=== PATIENT | female | born 1970 | race Caucasian/White ===

== ENCOUNTER → 2017-07-15 | Outpatient (CLI) | payer OTHER | LOC: ULTRA 05:41 | DX: N83.202 Unspecified ovarian cyst, left side (principal); N93.0 Postcoital and contact bleeding ==

== ENCOUNTER 2017-09-19 13:21 | Emergency (ER) | payer OTHER ==
[~2017-09-19] VITALS: Ht 162.6 cm; Wt 90.7 kg
[2017-09-19 13:36] LABS: ABSOLUTE NEUTROPHILS 6.8 thou/uL (1.4-8.2); BASOPHILS 0.6 % (0.0-2.0); EOSINOPHILS 1.2 % (0.0-3.0); HEMATOCRIT 40.7 % (37.0-47.0); HEMOGLOBIN 14.2 gm/dL (12.0-15.0); LYMPHOCYTES 38.1 % (24.0-44.0); MCH 33.2 pg (26.0-34.0); MCV 94.9 fL (80.0-100.0); PLATELET COUNT 331 thou/uL (150-400); POLYS 55.1 % (36.0-66.0); RBC 4.29 mil/uL (4.20-5.00); RDW 13.3 % (10.5-14.5); WBC 12.3 thou/uL (4.0-11.0)
[2017-09-19 13:47] LABS: CALCIUM 8.6 mg/dL (8.5-10.1); CREATININE 1.1 mg/dL (0.6-1.0); POTASSIUM 4.5 mmol/L (3.5-5.1)
[2017-09-19 13:53] LABS: ALBUMIN 3.6 g/dL (3.4-5.0); TOTAL BILIRUBIN 0.4 mg/dL (<0.1-1.0); TOTAL PROTEIN 7.7 g/dL (6.4-8.2)
[2017-09-19 15:12] LABS: URINE BILIRUBIN NEGATIVE (Negative); URINE BLOOD NEGATIVE (Negative); URINE CLARITY CLEAR; URINE COLOR YELLOW; URINE GLUCOSE-RANDOM* NEGATIVE (Negative); URINE KETONES NEGATIVE (Negative); URINE NITRITE-REFLEX NEGATIVE (Negative); URINE PROTEIN (DIPSTICK) NEGATIVE (Negative); URINE SPECIFIC GRAVITY 1.025 (1.005-1.035); URINE UROBILINOGEN 0.2 E.U./dl (0.2-1.0)
[2017-09-19 15:15] LABS: URINE LEUKOCYTES-REFLEX TRACE (Negative)
[2017-09-19 15:41] LABS: CASTS None Seen /LPF (None Seen); SQUAMOUS 4-10 Moderate /LPF (0-3); URINE RBC None Seen /HPF (0-2); URINE WBC 0-5 Rare /HPF (0-5)
[2017-09-19] MEDS ORDERED: VIBRAMYCIN 100100 M2 PO (15:41)
[2017-09-19] MEDS ORDERED: IBUPROFEN 600600 M1 PO (15:41)
[2017-09-19 15:42] LABS: BACTERIA None Seen /HPF (None Seen)
[2017-09-19 16:01] VITALS: BP 143/76
== END 2017-09-19 16:02 | disposition home or self-care (01) ==
LOC: ER 13:21
PROVIDERS: Nurse Practitioner Family
DX: N72 Inflammatory disease of cervix uteri (principal); R50.9 Fever, unspecified; Z88.0 Allergy status to penicillin; Z88.5 Allergy status to narcotic agent

== ENCOUNTER 2018-03-18 10:39 | Day surgery (SDC) | payer OTHER ==
[~2018-03-18] VITALS: Ht 162.6 cm; Wt 104.3 kg
--- NOTE | ~2018-03-18 | O ---
[facility] [place] [address] OPERATIVE REPORT Name: CLARA OLIVER [place] #[place] [facility] [place]avon[place] [id number] Admission: 03/18/18 Attend Phys: Parish Barker MD Discharge: 03/18/18 Date of : 66 Report #: [id number] THIS REPORT FOR: //name// CC: Nimo Barker DATE OF SERVICE: 03/18/2018 PREOPERATIVE DIAGNOSIS: Abnormal uterine bleeding. POSTOPERATIVE DIAGNOSES: Abnormal uterine bleeding, endometrial polyp. PROCEDURE: Fractional dilatation and curettage, MyoSure endometrial hysteroscopic polypectomy. SURGEON: Parish Barker MD FACILITIES SUPERVISOR: None. ANESTHESIA: General. ESTIMATED BLOOD LOSS: 10 mL. DRAINS: None. SPECIMEN: 1. Endometrial curettings. 2. Endocervical curettings. COMPLICATIONS: None. FINDINGS: Normal cervix, uterus and adnexa are nonpalpable on pelvic exam. The endocervical canal was normal. Hysteroscopically, there was a 0.5 cm diameter endometrial polyp just proximal to the right tubal ostium. There were no submucosal fibroids. The endometrium was irregularly thickened. DESCRIPTION OF PROCEDURE: The patient was seen in the preoperative holding area where consent was obtained for surgery and postoperative followup arranged. She was then taken to the operating room, administered general anesthesia, prepped and draped in sterile fashion in dorsal lithotomy position. Pelvic exam under anesthesia was carried out. Findings were as dictated as above. A speculum was placed in the vagina. The anterior lip of the cervix was grasped using a single-tooth tenaculum. A diagnostic hysteroscope was inserted under direct hysteroscopic vision with normal saline distending medium. Hysteroscopic findings were as dictated as above. The hysteroscope was removed. The uterus was then sounded to a depth of 7 cm. Hanks dilators were then used to [facility] [address] [place] [address] OPERATIVE REPORT Name: CLARA OLIVER Room #: [place] [facility] [place] Kavon#: [id number] Admission: 03/18/18 Attend Phys: Parish Barker MD Discharge: 03/18/18 Date of : 66 Report #: [id number] progressively dilate the cervix to a #14, large enough to admit the MyoSure hysteroscope, which was then inserted under direct hysteroscopic vision using normal saline distending medium. The MyoSure unit was then used to morcellate and remove the endometrial polyp found just inside the tubal ostia on the patient's right. The MyoSure unit was then used to sample the thickened endometrium from the uterine fundus posteriorly and anteriorly, it was then withdrawn. Hanks dilators were then used progressively to dilate the endocervical canal and endocervical curettage was carried out and this tissue was sent for pathology. A uterine curette was then used to obtain endometrial curettings from the entirety of the endometrial cavity in a clockwise fashion. The specimen was combined with a MyoSure trap specimen and sent for pathology as endometrial. The single-tooth tenaculum was removed. Sponge on a stick was used to produce pressure on the cervix for hemostasis, which was achieved. All instrument and pack counts were correct. The patient was brought out of general anesthesia and taken to recovery room with IV infusing well. She is to follow up as an outpatient in the office in 2 weeks' time and call should she have any increasing pain, persistent bleeding, malaise, nausea or other signs of complications. By: [id number] Parish Barker MD /nt
[~2018-03-18 10:39] MED LIST: ARMOUR THYROID90 M1 PO; BUSPIRONE HCL10 MG PO; CAMRESE LO TAB1 EACH PO; IBUPROFEN 600600 M1 PO; MULTIVITAMINS PO; VIBRAMYCIN 100100 M2 PO
[2018-03-18 11:30] VITALS: BP 147/75
[2018-03-18 14:24] VITALS: BP 147/75
--- NOTE | 2018-03-19 16:08 | PATH ---
[facility] [place] [address] PATHOLOGY RPT PROCEDURE Name: AUNDREA ARREOLA [place] #: [place] [facility] [place] M.R.#: [id number] Admission: 03/18/18 Date of : 66 Discharge: 03/18/18 Report #: [id number] Path Case #: [id number] [facility] Accession Number: [id number] . 01 Material submitted: . PART A: ENDOMETRIAL CURETTINGS AND POLYP PART B: ENDOCERVICAL CURETTINGS . 01 Clinical history: . Abnormal uterine bleeding, endometrial polyp . 02 Diagnosis: A. Uterus, endometrial curettings and polyp: - Few fragments compatible with benign endometrial polyp; negative for atypia or malignancy. - Background endometrium showing tubular inactive appearing endometrial glands associated with pseudodecidualized stroma, changes consistent with exogenous/endogenous progesterone effect. - Fragments of benign endocervical epithelium with no evidence of dysplasia. - Few fragments compatible with endocervical polyps showing mild acute and chronic inflammation. . B. Cervix, endocervical curettings: - Fragments of benign endocervical polyps with mild acute and chronic inflammation. - Background endocervical epithelium showing mild acute and chronic cervicitis. - Negative for dysplasia. . (IUV:cook helper pastry; 03/19/2018) MBR/03/19/2018 . 02 Electronically signed: . Angi Brito MD, Pathologist NPI- [id number] . 01 Gross description: . A. Received in formalin labeled "Aundrea Arreola, endometrial curettings and polyp," is blood-tinged mucoid material containing small fragments of spaulding membranous tissue, measuring 2.5 x 1.9 x 0.2 cm in aggregate dimensions. The specimen is filtered and submitted entirely in cassette A1. . B. Received in formalin labeled "Aundrea Arreola, endocervical curettings," is blood-tinged mucoid material containing small fragments of spaulding membranous tissue, measuring 1.8 x 0.5 x 0.1 cm in aggregate [address] [address] PATHOLOGY RPT PROCEDURE Name: AUNDREA ARREOLA Room #: [place] [facility] [place] M.R.#: [id number] Admission: 03/18/18 Date of : 66 Discharge: 03/18/18 Report #: [id number] Path Case #: [id number] dimensions. The specimen is filtered and submitted entirely in cassette B1. (TSD; 03/18/2018) TOB/TOB . 02 Pathologist provided ICD-10: N84.0, N84.1, N72 . 02 CPT . 963914, [id number] Specimen Comment: A courtesy copy of this report has been sent to Specimen Comment: [phone], . Specimen Comment: Report sent to and Performed at: [address], [place] [id number] MD Rene Calero MD Phone: [phone] Performed at: [address] [id number] MD Angi Brito MD Phone: [phone]
== END 2018-03-18 14:35 | disposition home or self-care (01) ==
LOC: OR 10:39 → TBA 10:40 → OR 11:43
DX: N93.9 Abnormal uterine and vaginal bleeding, unspecified (principal); N84.0 Polyp of corpus uteri; N84.1 Polyp of cervix uteri; N72 Inflammatory disease of cervix uteri; F41.9 Anxiety disorder, unspecified; E03.9 Hypothyroidism, unspecified; Z90.49 Acquired absence of other specified parts of digestive tract; Z98.890 Other specified postprocedural states; Z88.0 Allergy status to penicillin; Z88.8 Allergy status to other drugs, medicaments and biological substances; Z79.899 Other long term (current) drug therapy
CPT/HCPCS: 50010; 50101; 54171; 54172; 54173; 62110; 62900; 70005